=== PATIENT | female | born 1980 | race Hispanic/Latino ===

== ENCOUNTER 2023-04-06 18:58 | Emergency (ER) | payer BC ==
[2023-04-06] MEDS ORDERED: Dexamethasone 4 MG TAB ONE (19:52)
[2023-04-06] MEDS ORDERED: Ketorolac Tromethamine 30 MG/ML VIAL ONE (19:53)
[2023-04-06] MEDS ORDERED: Amoxicillin/Potassium Clav 875 MG TAB ONE (19:53)
== END 2023-04-06 20:00 | disposition home or self-care (01) ==
LOC: CSHERS 18:58
DX: K08.89 Other specified disorders of teeth and supporting structures (principal); I10 Essential (primary) hypertension; Z79.899 Other long term (current) drug therapy
CPT/HCPCS: 96372; 99282; J1885; J8540

== ENCOUNTER 2024-08-29 23:27 | Emergency (ER) | payer BC, SELFPAY ==
[2024-08-30] MEDS ORDERED: Ketorolac Tromethamine 30 MG (1 mL) VIAL ONE (00:07)
== END 2024-08-30 00:36 | disposition home or self-care (01) ==
LOC: CSHERS 23:27
DX: K04.7 Periapical abscess without sinus (principal); I10 Essential (primary) hypertension; Z90.49 Acquired absence of other specified parts of digestive tract
CPT/HCPCS: 96372; 99282; J1885